=== PATIENT | male | born 1965 | race Caucasian/White ===

== ENCOUNTER 2024-09-19 15:58 | Outpatient (RCR) | payer BC, SELFPAY | END 2024-09-19 17:24 | disposition home or self-care (01) | PROVIDERS: PCP Family Medicine; Visit Provider Orthopaedic Surgery | DX: M16.12 Unilateral primary osteoarthritis, left hip (principal); Z96.642 Presence of left artificial hip joint; M25.552 Pain in left hip; Z74.09 Other reduced mobility; M62.81 Muscle weakness (generalized); R26.9 Unspecified abnormalities of gait and mobility; Z51.89 Encounter for other specified aftercare | CPT/HCPCS: 97161; 97535 ==

== ENCOUNTER 2025-02-28 06:08 | Day surgery (SDC) | payer BC, SELFPAY ==
[2025-02-28] VITALS (17 sets, daily range): BP systolic 120–161; BP diastolic 71–108; PULSE 62–88; RESP 14–18; TEMP 36.3–37; O2SAT 96–100; BMI 24.7
[2025-02-28] MEDS: LACTATED RINGERS 1000 ML 1,000 ML 100 ML IV ×3 (06:45→12:15)
[2025-02-28] MEDS: SODIUM CHLORIDE 0.9 % (FLUSH) 10 ML SYRINGE IVF (06:45)
[2025-02-28] MEDS: CELECOXIB 200 MG CAPSULE PO (07:05)
[2025-02-28] MEDS: OXYCODONE (CR) 10 MG TAB.ER.12H PO (07:05)
[2025-02-28] MEDS: ACETAMINOPHEN 500 MG TABLET 1000 MG PO ×2 (07:05→12:26)
--- NOTE | 2025-02-28 07:06 | SUR.PREOP ---
TIME?OUT:?0710 PT/RN/MDA?VERIFICATION?OF?SURGICAL?SITE,?PROCEDURE,?AND?CONSENT OBTAINED?PRIOR?TO?INVASIVE?PROCEDURE.
[2025-02-28] MEDS: MIDAZOLAM HCL 1 MG/ML inj IVP (07:12)
--- NOTE | 2025-02-28 07:15 | CRLHL7_ITS ---
For Patients: As a result of the Cures Act, medical imaging exams and procedure reports are released immediately into your electronic medical record. You may view this report before your referring provider. If you have questions, please contact your health care provider. Indication: Hip replacement surgery Technique: AP hip fluoroscopic images. Fluoroscopy time 67.6 seconds. Findings/Impression: Hardware from a left total hip arthroplasty is in satisfactory position. Dictated by Ramon Kolb MD @ 02/28/2025 11:45:03 AM (Electronically Signed)
[2025-02-28] MEDS: TRANEXAMIC ACID 100 MG/ML INJ 1000 MG IV (07:26)
--- NOTE | 2025-02-28 08:57 | P.ANES_ITS ---
Anesthesia Charges Start Date/Time Anesthesia Start Date: 02/28/25 Anesthesia Start Time: 07:19 Stop Date/Time Anesthesia Stop Date: 02/28/25 Anesthesia Stop Time: 10:05 Coding CPT Codes CPT Codes: ANESTH HIP ARTHROPLASTY - 81885 ([id number]) P2 - PATIENT W/MILD SYST DISEASE, QK - RECEPTIONIST 2-4 CNCRNT ANES PROC, QX - YARD DEMURRAGE CLERK SVC W/ MD MED DIRECTION
--- NOTE | 2025-02-28 08:57 | P.NB_ITS ---
Nerve Block Nerve Block Time Seen by Provider: 07:15 Date Seen: 02/28/25 Type of block requested by surgeon for post-operative analgesia: KARLA/LFCN Side: left Time out performed: Yes Verification of patient name: Yes Verification of date of : Yes Site marking: site marked Name of person performing procedure: Hayden Continuous monitoring Was continuous monitoring of O2 sat, B/P, quality assurance monitor chassis, recorded every 15 minutes?: Yes Procedure Checklist: sterile prep, needles and gloves Ultrasound guided. Images saved: Yes Medications given in 5ml increments after negative aspiration: Ropivicaine %: 0.5 mL: 30 Needle gauge: 20 Precedex (mcg): 25 Patient tolerated procedure well: Yes Additional comments: Needle noted below psoas tendon needle noted adjacent to LFCN Block Charges Block Charge (with Pro Fee): Other Periph Nerve Block Use of Ultrasound Machine for Block: Yes- US Guidance/pain block
--- NOTE | 2025-02-28 08:57 | W.ANESCHARGE ---
Anesthesia Charges Start Date/Time Anesthesia Start Date: 02/28/25 Anesthesia Start Time: 07:19 Stop Date/Time Anesthesia Stop Date: 02/28/25 Anesthesia Stop Time: 10:05 Coding CPT Codes CPT Codes: ANESTH HIP ARTHROPLASTY - 23103 ([id number]) P2 - PATIENT W/MILD SYST DISEASE, QK - BATTERY HAND 2-4 CNCRNT ANES PROC, QX - STIFF LEG OPERATOR SVC W/ MD MED DIRECTION
--- NOTE | 2025-02-28 09:20 | PM.ORPRC ---
Procedure Note Date of procedure: 02/28/25 Procedure: PREOPERATIVE DIAGNOSIS: Left hip osteoarthritis POSTOPERATIVE DIAGNOSIS: Left hip osteoarthritis NAME OF OPERATION: Left total hip arthroplasty SURGEON: Yogi Anglin MD CLINICAL SCIENCE LIAISON: Queenie Carey PA-C, NADEGE Blankenship IMPLANTS: 1. [employer] [place] # 56 sector ingrowth cup 2. 36 x 56 +4 neutral polyethylene 3. Actis # 8 standard collared ingrowth stem 4. 36 + 1.5 ceramic femoral head ANESTHESIA: General ESTIMATED BLOOD LOSS: 300 cc COMPLICATIONS: None SPECIMENS: None DRAINS: None PREOPERATIVE ANTIBIOTICS: Ancef 1 g INDICATIONS: The patient is a 59-year-old with a longstanding history of severe, unrelenting left hip pain secondary to end-stage left hip osteoarthritis. Despite appropriate nonoperative management, including activity modification, use of an assist device, anti-inflammatories, [id number] pain medication, physical therapy and injections, they continue to have pain and disability. Operative intervention was offered. The risks, benefits and expected outcomes were discussed in detail. These included but were not limited to: Infection, bleeding, injury to blood vessel or nerve, venous thromboembolism. All questions were answered to their satisfaction. Use of an assistant press operator was necessary throughout the case for patient positioning and safety, soft tissue retraction and closure. PROCEDURE: The patient was placed supine on the [employer] table. General anesthesia was administered. The assistant press operator made sure the patient was properly positioned. The left hip was prepped and draped in the usual sterile fashion. The image intensifier was brought in for a perfect AP pelvis and a perfect double tear drop AP view of each hip which were used for intraoperative templating with our fluoroscopic guide. An oblique incision was made 3 cm distal and 3 cm lateral to the anterior superior iliac spine. The assistant press operator retracted the soft tissues to protect them. Subcutaneous dissection was taken with electrocautery to the superficial fascia. The fascia was divided in line with the incision. Blunt dissection was carried medially to the tensor fascia wesley and sartorius interval. Deep dissection was carried with electrocautery. The circumflex vessels were cauterized and divided. The capsule was exposed and then divided in a T-fashion, tagged with #1 FiberWire sutures. Retractors were placed in the joint, held by the assistant press operator. The corkscrew was placed in the femoral head. The neck cut was made in the subcapital region. We made a second neck cut more distal. The napkin ring of bone was removed. The femoral head was removed intact. Acetabular retractors were placed, held by the assistant press operator. The labrum was sharply debrided. The capsule was released. The 43 mm reamer was used to the true medial wall. We then enlarged in 2 mm increments using the image intensifier for our reamer placement. We impacted the cup which had excellent purchase. We placed the polyethylene. Attention was then turned to the proximal femur. The limb was placed in 140 degrees of external rotation, maximum extension and adduction. A significant amount of time was spent releasing the capsule to allow us to deliver the femur into the wound and complete the femoral side safely. Retractors were held by the assistant press operator throughout the femoral preparation. The box car loader and canal finder were used. Broaches were used to a stable size. The calcar reamer was used. Trial components were placed. The hip was reduced and was found to be stable with appropriate soft tissue tension. Length and offset had been nicely restored using the image intensifier and our fluoroscopic guide. Trial components were removed. The stem was impacted. We placed the femoral head. Again, the hip was reduced and was found to be stable with appropriate soft tissue tension. Length and offset had been nicely restored. The assistant press operator did a three minute dilute Betadine solution soak. The assistant press operator irrigated the wound with 3 liters of normal saline via pulse lavage. The assistant press operator repaired the anterior capsule with a #1 Vicryl and our previously placed Ethibond sutures. The assistant press operator closed the fascia over the tensor fascia wesley with a #1 PDO Stratafix, subcutaneous tissues with 2-0 Vicryl, skin with a running 3-0 Stratafix and glue. A dry dressing was applied by the assistant press operator. Sponge and needle counts were correct x 2. The patient tolerated the procedure well; there were no apparent complications. They were awakened and extubated in the operating room, sent to the Post-Anesthesia Care Unit in satisfactory condition. PLAN: 1. The patient will be mobilized with physical therapy, weight-bearing as tolerates 2. Xarelto x 5 days then aspirin x 30 days will be used for DVT prophylaxis 3. The patient will be discharged once medically appropriate
--- NOTE | 2025-02-28 10:09 | P.ANES_ITS ---
Anesthesia Charges Start Date/Time Anesthesia Start Date: 02/28/25 Anesthesia Start Time: 07:19 Stop Date/Time Anesthesia Stop Date: 02/28/25 Anesthesia Stop Time: 10:05 Coding CPT Codes CPT Codes: ANESTH HIP ARTHROPLASTY - 41551 ([id number]) P2 - PATIENT W/MILD SYST DISEASE, QK - PROCUREMENT ASSISTANT 2-4 CNCRNT ANES PROC, QX - LOGGING ASSISTANT SVC W/ MD MED DIRECTION
--- NOTE | 2025-02-28 10:09 | CRLHL7_ITS ---
For Patients: As a result of the Cures Act, medical imaging exams and procedure reports are released immediately into your electronic medical record. You may view this report before your referring provider. If you have questions, please contact your health care provider. Indication: Postop Technique: AP hip centered pelvis and lateral view left hip Findings/Impression: Hardware from a left total hip arthroplasty is in satisfactory position. Bone alignment is normal. No sign of acute fracture. Postop changes are within normal limits. Dictated by Ramon Kolb MD @ 02/28/2025 11:44:20 AM (Electronically Signed)
--- NOTE | 2025-02-28 10:09 | W.ANESCHARGE ---
Anesthesia Charges Start Date/Time Anesthesia Start Date: 02/28/25 Anesthesia Start Time: 07:19 Stop Date/Time Anesthesia Stop Date: 02/28/25 Anesthesia Stop Time: 10:05 Coding CPT Codes CPT Codes: ANESTH HIP ARTHROPLASTY - 58712 ([id number]) P2 - PATIENT W/MILD SYST DISEASE, QK - CAMERA CONTROL OPERATOR 2-4 CNCRNT ANES PROC, QX - GLASS PRODUCTION MACHINE OPERATOR SVC W/ MD MED DIRECTION
== END 2025-02-28 14:02 | disposition home or self-care (01) ==
LOC: OR 06:08
PROVIDERS: PCP Family Medicine; Visit Provider Orthopaedic Surgery
PROC: (CPT 27130; principal; 2025-02-28 07:15)
DX: M16.12 Unilateral primary osteoarthritis, left hip (principal); G89.18 Other acute postprocedural pain
CPT/HCPCS: 27130; 01214; 36415; 64450; 73501; 76000; 76942; 86850; 86900; 86901; 97110; 97116; 97161; 97165; 97535; A9270; C1776; J0690; J1100; J1171; J2250; J2371; J2405; J2704; J2710; J2795; J3010; J7120